=== PATIENT | female | born 1955 | race Caucasian/White ===

== ENCOUNTER → 2023-02-28 | Outpatient (CLI) | payer MEDICARE ==
[2023-02-28 15:41] LABS: African American GFR (CKD) >90 (>60 ml/min/1.73 sqM); Blood Urea Nitrogen 21 mg/dL (7-17); Non-African American GFR(CKD) >90 (>60 ml/min/1.73 sqM)
--- NOTE | 2023-02-28 18:23 | CT ---
EXAMINATION TYPE: CT chest w con DATE OF EXAM: 02/28/2023 COMPARISON: None HISTORY: obs for mets. poss pancreatic ca CT DLP: 125.7 mGycm, Automated exposure control for dose reduction was used. CONTRAST: Performed injected with 100 mL of Isovue 300. TECHNIQUE: Axial images were obtained at 5 mm thick sections. Reconstructed images are reviewed on [employer] computer in the coronal plane. FINDINGS: Portion of the thyroid visualized is normal. There is a 0.3 cm nodule posterior lateral right upper lung field. Series 4 image 8. There may be a calcified rounded density in the periphery of the left anterolateral lung. Series 4 im age 20. There is a calcified density in the posterior lateral left lung measuring 0.8 cm. Some mild density i s adjacent to this structure. There is a 0.5 cm rounded density in the right middle lobe. Series 4 image 44. There is a calcified density within the posterior medial right lung base measuring 0.5 cm. Series 4 i mage 49. No enlarged mediastinal or hilar adenopathy is evident. The ascending aorta diameter at the level o f the main pulmonary artery is 3.4 cm. The main pulmonary artery diameter at the bifurcation is 1.[address] sections are obtained through the upper abdomen. There is a 1.0 cm cyst on the left lobe l iver within the [id number]. Additional 1.4 and 1.1 cm cysts are within the left and right lobe res pectively. The abnormal pancreas is partially visualized. Biliary dilatation is evident. IMPRESSIONS: 1. There are a few Scattered nonspecific small densities within the lung guerrier. Most are suggestive for benign calcified granuloma. Couple of smaller areas however cannot exclude metastatic disease. Gi matthew the size, monitoring with CT chest in 3 months is recommended. 2. Changes of the patient's suspected pancreatic cancer partially visualized within the [id number] .
== END | disposition home or self-care (01) ==
LOC: RADCTMAIN 15:01
PROVIDERS: ATTEND Internal Medicine
DX: C25.9 Malignant neoplasm of pancreas, unspecified (principal); J98.4 Other disorders of lung
CPT/HCPCS: 82565; 84520; 71260; 36415; Q9967